=== PATIENT | male | born 1980 | race American Indian/Alaskan Native ===

== ENCOUNTER 2016-12-03 00:08 | Observation (INO) | payer MEDICAID ==
[2016-12-03 00:18] VITALS: RESP 18; TEMP 98.5
--- NOTE | 2016-12-03 01:29 | C.PDOC ---
History Of Present Illness A 36 year old male presents to the emergency room stating that he is hearing voices. Patient was admitted to [facility] 3 days ago and signed out AMA yesterday. Patient denies any physical complaints at this time. Time Seen by Provider: 12/03/16 00:50 Chief Complaint (Nursing): Psychiatric Evaluation History Per: Patient History/Exam Limitations: no limitations Onset/Duration Of Symptoms: Hrs Current Symptoms Are (Timing): Still Present Past Medical History Reviewed: Historical Data, Nursing Documentation, Vital Signs Vital Signs: Last Vital Signs Temp 98.5 F 12/03/16 03:16 Pulse 111 H 12/03/16 03:16 Resp 18 12/03/16 03:16 BP 143/92 H 12/03/16 03:16 Pulse Ox 97 12/03/16 05:07 - Medical History PMH: Bipolar Disorder, Bronchitis, COPD, Depression (Persistent Depressive Disorder), Schizophrenia Denies: Diabetes, Hepatitis, HIV, HTN, Seizures, Sexually Transmitted Disease Family History: States: Unknown Family Hx - Social History Hx Tobacco Use: Yes Hx Alcohol Use: No Hx Substance Use: Yes - Immunization History Hx Tetanus Toxoid Vaccination: No Hx Influenza Vaccination: No Hx Pneumococcal Vaccination: No Review Of Systems Except As Marked, All Systems Reviewed And Found Negative. Psych: Positive for: Other (Hearing voices). Negative for: Suicidal ideation Physical Exam - Physical Exam Appears: Non-toxic Skin: Warm, Dry Head: Normacephalic Eye(s): bilateral: Normal Inspection Cardiovascular: Rhythm Regular Respiratory: Normal Breath Sounds, No Wheezing Gastrointestinal/Abdominal: Normal Exam Extremity: Bilateral: Atraumatic Neurological/Psych: Oriented x3, Normal Speech, Normal Cognition Gait: Steady ED Course And Treatment O2 Sat by Pulse Oximetry: 97 Medical Decision Making Medical Decision Making: Impression: A 36 year old male that is hearing voices. No acute findings on exam. Progress Notes: Case discussed with travelers' aid worker remediation project engineer who informed me that the patient was recently admitted and left AMA yesterday. Crisis states that the patient will not be evaluated any more for admission today and needs to follow up outpatiently. Patient is requesting to sleep here. 5Am: Pt is AAox3, in no acute distress. Pt denies S/H ideations. Pt understood that he should keep his outpatient appointment. Pt is ambulatotyin ER Disposition Counseled Patient/Family Regarding: Diagnosis, Need For Followup, Rx Given - Disposition Disposition: HOME/ ROUTINE Disposition Time: 05:05 Condition: STABLE - Clinical Impression Clinical Impression: Schizophrenia - Scribe Statement The provider has reviewed the documentation as recorded by the Moni Villavicencio Provider Caylaibe Attestation: All medical record entries made by the Caylaibtao were at my direction and personally dictated by me. I have reviewed the chart and agree that the record accurately reflects my personal performance of the history, physical exam, medical decision making, and the department course for this patient. I have also personally directed, reviewed, and agree with the discharge instructions and disposition.
[2016-12-03 03:17] VITALS: BP 143/92; PULSE 111
[2016-12-03 05:04] VITALS: O2SAT 97
== END 2016-12-03 04:57 | disposition home or self-care (01) ==
LOC: C.ER 00:08 → C.9OBSV 01:14
PROVIDERS: ADMIT Emergency Medicine; ATTEND Emergency Medicine
DX: F20.9 Schizophrenia, unspecified (principal)
CPT/HCPCS: 80053; 80320; 80324; 80345; 80346; 80349; 80353; 80358; 80361; 81001; 83992; 85025; 99283; 99284; G0378